=== PATIENT | female | born 1940 | race Caucasian/White ===

== ENCOUNTER 2021-01-28 22:41 | Observation (INO) | payer MEDICARE, OTHER ==
--- NOTE | 2021-01-28 22:52 | EDM.PDOC ---
ED HPI GENERAL MEDICAL PROBLEM - General Chief Complaint: Trauma Stated Complaint: FACE LACERATION AND SWOLLEN EYE Time Seen by Provider: 01/28/21 22:45 Source of Information: Reports: Patient, Family History Limitations: Reports: No Limitations - History of Present Illness INITIAL COMMENTS - FREE TEXT/NARRATIVE: Patient is a 80-year-old female who is on warfarin presents today after a fall from standing. She tripped and fell and hit her face on a bucket that was on the ground. She denies any LOC. She suffered laceration to her bridge of her nose and left eyelid. She denies any pain currently states she is able to see clearly. She has no other mental status no pain in her extremities. Upper Face/Facial Pain Score (Numeric/FACES): 5 - Related Data Allergies Allergy/AdvReac Type Severity Reaction Status Date / Time digoxin [From Lanoxin] Allergy Cannot Verified 01/28/21 22:55 Remember hydromorphone HCl Allergy Hallucinati Verified 01/28/21 22:55 [From Dilaudid] ons ibuprofen Allergy Cannot Verified 01/28/21 22:55 Remember levofloxacin Allergy Tachycardia Verified 01/28/21 22:55 naproxen Allergy Rash Verified 01/28/21 22:55 Penicillins Allergy Rash Verified 01/28/21 22:55 propoxyphene HCl Allergy Hallucinati Verified 01/28/21 22:55 [From Darvon] ons quinine Allergy Rash Verified 01/28/21 22:55 Sulfa (Sulfonamide Allergy Cannot Verified 01/28/21 22:55 Antibiotics) Remember sulfasalazine [Sulfasalazine] Allergy Rash Verified 01/28/21 22:55 demerol Allergy Rash Uncoded 01/28/21 22:55 naproxen Allergy Rash Uncoded 01/28/21 22:55 Home Meds: Home Meds Furosemide 20 mg PO DAILY 07/29/14 [History] Metoprolol Tartrate 50 mg PO BID 07/29/14 [History] lisinopriL [Prinivil] 40 mg PO DAILY 07/29/14 [History] metFORMIN HCl [Metformin ER Osmotic] 500 mg PO BIDMEALS 07/29/14 [History] Warfarin [Coumadin] 5 mg PO WE 07/31/14 [History] Warfarin [Coumadin] 10 mg PO SUMOTUTHFRSA 07/31/14 [History] Fluticasone/Salmeterol [Advair 250-50] 1 puff INH BID 08/16/14 [History] Nitroglycerin [Nitrostat] 0.4 mg SL Q5M 12/26/15 [History] Past Medical History HEENT History: Reports: Other (See Below) Other HEENT History: wearing spectacles Cardiovascular History: Reports: Hypertension, Stents, Other (See Below) Other Cardiovascular History: congestive heart Respiratory History: Reports: COPD, Other (See Below) Other Respiratory History: pulmonary embolism Genitourinary History: Reports: None 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: Neurological History: Reports: None Psychiatric History: Reports: None Endocrine/Metabolic History: Reports: Diabetes, Type II Hematologic History: Reports: None Immunologic History: Reports: None Oncologic (Cancer) History: Reports: None Dermatologic History: Reports: None - Infectious Disease History Infectious Disease History: Reports: Chicken Pox, Measles, Mumps, Pertussis (Whooping Cough) - Past Surgical History GI Surgical History: Reports: Hernia, Abdominal ED ROS GENERAL - Review of Systems Review Of Systems: See Below Constitutional: Reports: No Symptoms HEENT: Reports: No Symptoms Respiratory: Reports: No Symptoms Cardiovascular: Reports: No Symptoms Endocrine: Reports: No Symptoms GI/Abdominal: Reports: No Symptoms : Reports: No Symptoms Musculoskeletal: Reports: No Symptoms Skin: Reports: Other (laceration) Neurological: Reports: No Symptoms Psychiatric: Reports: No Symptoms Hematologic/Lymphatic: Reports: No Symptoms Immunologic: Reports: No Symptoms ED EXAM, HEAD INJURY - Physical Exam Exam: See Below Exam Limited By: No Limitations General Appearance: Alert, WD/WN Head: Facial Swelling Nexus Criteria: No: Posterior, Midline Cervical Tenderness, Evidence of Intoxication, Altered Level of Consciousness Eyes: Left Eye: Other (Laceration 2 eyelid), Bilateral Eye: EOMI, PERRL Neck: Non-Tender, Full Range of Motion Respiratory: No Respiratory Distress, Lungs Clear, Normal Breath Sounds Cardiovascular: Normal Peripheral Pulses, Regular Rate, Rhythm GI/Abdominal Exam: Normal Bowel Sounds Neurologic: Alert, Oriented x 3 - [place] Coma Score Best Eye Response (Debi): (4) Open Spontaneously Best Verbal Response (Debi): (5) Oriented Best Motor Response (Debi): (6) Obeys Commands ED LACERATION/WOUND & PEDRO PROC - Laceration/Wound Repair Nare Lac/wound length in cm: 4 Appearance: Superficial Anesthetic Type: Local Local Anesthesia - Lidocaine (Xylocaine): 1% Plain Local Anesthetic Volume: 4cc Skin Prep: Saline Saline irrigation (cc's): 1,000 Exploration/Debridement/Repair: Wound Explored Closed with: Sutures Suture Size: 5-0 # of Sutures: 12 Suture Type: Interrupted, Simple Course - Vital Signs Last Recorded V/S: Last Vital Signs Temp 98.6 F 01/29/21 00:24 Pulse 73 01/29/21 02:00 Resp 18 01/29/21 02:00 BP 186/88 H 01/29/21 02:00 Pulse Ox 96 01/29/21 02:00 - Orders/Labs/Meds Orders: Active Orders 24 hr Category Date Time Status Patient Status [ADT] Routine ADT 01/29/21 02:31 Ordered Vaccines to be Administered [RC] PER UNIT ROUTINE Care 01/28/21 23:31 Active CORONAVIRUS COVID-19 PING [MOLEC] Stat Lab 01/29/21 01:50 Received Labs: Laboratory Tests 01/29/21 01/29/21 01/29/21 Range/Units 01:50 01:50 01:50 WBC 9.00 (4.0-11.0) K/uL RBC 3.86 L (4.30-5.90) M/uL Hgb 13.0 (12.0-16.0) g/dL Hct 37.4 (36.0-46.0) % MCV 96.9 (80.0-98.0) fL MCH 33.7 H (27.0-32.0) pg MCHC 34.8 (31.0-37.0) g/dL RDW Std Deviation 52.6 (28.0-62.0) fl RDW Coeff of John 15 (11.0-15.0) % Plt Count 170 (150-400) K/uL MPV 12.40 H (7.40-12.00) fL Neut % (Auto) 75.5 (48.0-80.0) % Lymph % (Auto) 15.3 L (16.0-40.0) % Orange % (Auto) 8.2 (0.0-15.0) % Eos % (Auto) 0.8 (0.0-7.0) % Baso % (Auto) 0.2 (0.0-1.5) % Neut # (Auto) 6.8 H (1.4-5.7) K/uL Lymph # (Auto) 1.4 (0.6-2.4) K/uL Orange # (Auto) 0.7 (0.0-0.8) K/uL Eos # (Auto) 0.1 (0.0-0.7) K/uL Baso # (Auto) 0.0 (0.0-0.1) K/uL Nucleated RBC % 0.0 /100WBC Nucleated RBCs # 0 K/uL INR 2.39 APTT 36.4 H (18.6-31.3) SEC Sodium 141 (136-145) mmol/L Potassium 3.6 (3.5-5.1) mmol/L Chloride 105 (98-107) mmol/L Carbon Dioxide 26.8 (21.0-32.0) mmol/L BUN 11 (7.0-18.0) mg/dL Creatinine 0.8 (0.6-1.0) mg/dL Est Cr Clr Drug Dosing TNP Estimated GFR (MDRD) > 60.0 ml/min Glucose 123 H (74-106) mg/dL Calcium 9.0 (8.5-10.1) mg/dL Total Bilirubin 0.8 (0.2-1.0) mg/dL AST 21 (15-37) IU/L ALT 18 (14-63) IU/L Alkaline Phosphatase 63 (46-116) U/L Total Protein 6.9 (6.4-8.2) g/dL Albumin 3.9 (3.4-5.0) g/dL Globulin 3.0 (2.6-4.0) g/dL Albumin/Globulin Ratio 1.3 (0.9-1.6) Meds: Medications Discontinued Medications Generic Name Dose Route Start Last Admin Trade Name Freq PRN Reason Stop Dose Admin Hydrocodone Bitart/Acetaminophen 1 tab 01/29/21 01:45 01/29/21 02:08 Acetaminophen/Hydrocodone 325-5 Mg Tab PO 01/29/21 01:46 Not Given ONETIME ONE Diphtheria/Tetanus/Acell Pertussis 0.5 ml 01/28/21 23:31 01/28/21 23:54 Diphtheria,Pertussis(Acell),Tetanus Vaccine 0.5 Ml Syringe IM 01/28/21 23:32 0.5 ml .ONCE ONE Administration Fentanyl 50 mcg 01/29/21 01:50 01/29/21 02:23 Fentanyl 50 Mcg/Ml Sdv IVPUSH 01/29/21 01:51 50 mcg ONETIME ONE Administration Lidocaine HCl 5 ml 01/28/21 23:31 01/28/21 23:53 Lidocaine 1% 5 Ml Sdv INJECT 01/28/21 23:32 5 ml ONETIME ONE Administration - Re-Assessments/Exams Free Text/Narrative Re-Assessment/Exam: 01/29/21 01:[address] Hinds at [place] about patient's findings and he can see her as outpatient this week. He recommend not repairing the laceration to the left eyelid due to the location and not being able to approximated any skin and will heal with secondary intention. We repaired the laceration to the nose. We recommend patient follow-up as outpatient. 01/29/21 02:32 Due to us having to wrap the patient's left eye because we cannot repair laceration patient cannot see on the right eye we will admit for observation. Departure - Departure Time of Disposition: 01:32 Disposition: Refer to Observation Condition: Good Clinical Impression: Orbital floor (blow-out) closed fracture - Discharge Information *PRESCRIPTION DRUG MONITORING PROGRAM REVIEWED*: Not Applicable *COPY OF PRESCRIPTION DRUG MONITORING REPORT IN PATIENT KELSEY: Not Applicable Instructions: Orbital Floor Fracture Referrals: PCP,Not In Area [Primary Care Provider] - Forms: ED Department Discharge Additional Instructions: The following information is given to patients seen in the emergency department who are being discharged to home. This information is to outline your options for follow-up care. We provide all patients seen in our emergency department with a follow-up referral. The need for follow-up, as well as the timing and circumstances, are variable depending upon the specifics of your emergency department visit. If you don't have a primary care physician on staff, we will provide you with a referral. We always advise you to contact your personal physician following an emergency department visit to inform them of the circumstance of the visit and for follow-up with them and/or the need for any referrals to a consulting specialist. The emergency department will also refer you to a specialist when appropriate. This referral assures that you have the opportunity for follow-up care with a specialist. All of these measure are taken in an effort to provide you with optimal care, which includes your follow-up. Under all circumstances we always encourage you to contact your private physician who remains a resource for coordinating your care. When calling for follow-up care, please make the office aware that this follow-up is from your recent emergency room visit. If for any reason you are refused follow-up, please contact the [facility] Emergency Department at and asked to speak to the emergency department charge nurse. Please follow up with your primary care physician. If you do not have a primary care physician, see below: Carson Wilson Md Otolaryngology (Ear, Nose and Throat) [id number] [place] [address] [address] He was seen today after fall at home. You have a orbital floor fracture. We spoke to the ENT doctor at [place] and above is the number to call to obtain an appointment for follow-up. We also repaired your laceration to your nose with sutures and you need to have those taken out in the next 7 to 10 days. You had a laceration to left eyelid that cannot be repaired due to its location that would heal with secondary intention which means it would heal on his own. If you have any other concerning signs or symptoms please return to the ED. Sepsis Event Note (ED) - Focused Exam Vital Signs: Vital Signs Temp Pulse Resp BP Pulse Ox 01/29/21 02:00 73 18 186/88 H 96 01/29/21 01:00 75 18 175/84 H 96 01/29/21 00:24 98.6 F 86 18 176/80 H 96 01/28/21 22:51 98.4 F 88 20 195/103 H 95 - My Orders Last 24 Hours: My Active Orders 01/28/21 23:31 Vaccines to be Administered [RC] PER UNIT ROUTINE 01/29/21 01:50 CORONAVIRUS COVID-19 PING [MOLEC] Stat 01/29/21 02:31 Patient Status [ADT] Routine - Assessment/Plan Last 24 Hours: My Active Orders 01/28/21 23:31 Vaccines to be Administered [RC] PER UNIT ROUTINE 01/29/21 01:50 CORONAVIRUS COVID-19 PING [MOLEC] Stat 01/29/21 02:31 Patient Status [ADT] Routine Plan: Patient is a 80-year-old female presents today after fall from standing on blood thinners. We will obtain imaging of the head and face and also repair laceration of above her nose.
[2021-01-28] MEDS ORDERED: Diphtheria,Pertussis(Acell),Tetanus Vaccine 0.5 ML Syringe IM ONE (23:31)
--- NOTE | 2021-01-28 23:48 | CT ---
INDICATION: Facial injury TECHNIQUE: CT maxillofacial without contrast. COMPARISON: None FINDINGS: Facial bones: There is a blowout fracture of the left orbital floor depressed by 4 mm. No other facial fractures or dislocations. Orbits and globes: Unremarkable. Globes are intact. No sign of intraorbital hemorrhage or emphysema. Sinuses: Traumatic fluid present in the left maxillary sinus. Soft tissues: Left periorbital soft tissue contusion. IMPRESSION: Left orbital floor blow-out fracture depressed by 4 mm with traumatic fluid in the left maxillary sinus. Prominent left periorbital soft tissue contusion. Remainder of the exam is unremarkable. Please note that all CT scans at this facility use dose modulation, iterative reconstruction, and/or weight-based dosing when appropriate to reduce radiation dose to as low as reasonably achievable. Dictated by Flynn Meza MD @ 01/28/2021 11:45:48 PM (Electronically Signed)
--- NOTE | 2021-01-28 23:50 | CT ---
INDICATION: Head and facial injury. TECHNIQUE: CT head without contrast. COMPARISON: None. FINDINGS: CSF spaces: Within normal limits for age. Brain parenchyma and extra-axial spaces: The knowles-white differentiation is normal. No sign of mass, hemorrhage, or midline shift. No extra-axial fluid collection. Skull base and calvarium: The visualized paranasal sinuses and mastoid air cells demonstrate no acute or significant findings. The visualized orbits are grossly unremarkable. No skull fractures. IMPRESSION: Unremarkable noncontrast head CT. There are facial injuries detailed on a separate CT facial report. Please note that all CT scans at this facility use dose modulation, iterative reconstruction, and/or weight-based dosing when appropriate to reduce radiation dose to as low as reasonably achievable. Dictated by Flynn Meza MD @ 01/28/2021 11:48:17 PM (Electronically Signed)
[2021-01-29] MEDS ORDERED: Acetaminophen/HYDROcodone 325-5 MG Tab PO ONE (01:45)
[2021-01-29] MEDS ORDERED: fentaNYL 50 MCG/ML SDV IVPUSH ONE (01:50)
[2021-01-29 02:27] LABS: BLOOD UREA NITROGEN,BUN 11 mg/dL (7.0-18.0); CARBON DIOXIDE,CO2 26.8 mmol/L (21.0-32.0); CHLORIDE,CL 105 mmol/L (98-107); GLUCOSE RANDOM 123 mg/dL (74-106); POTASSIUM,K 3.6 mmol/L (3.5-5.1); SODIUM,NA 141 mmol/L (136-145)
[2021-01-29] MEDS ORDERED: Glucagon,Human Recombinant 1 MG Vial IM PRN (04:55)
[2021-01-29] MEDS ORDERED: 50% Dextrose in Water 50 ML Syringe IVPUSH PRN (04:55)
[2021-01-29] MEDS ORDERED: Sodium Chloride 0.9% 10 ML Syringe FLUSH PRN (04:56)
[2021-01-29] MEDS ORDERED: Sodium Chloride 0.9% 2.5 ML Syringe FLUSH PRN (04:56)
[2021-01-29] MEDS: Acetaminophen/HYDROcodone 325-5 MG Tab PO PRN ×2 (06:17→11:05)
[2021-01-29] MEDS: Lisinopril 10 MG Tab PO SCH ×2 (06:20→09:33)
[2021-01-29] MEDS: Metoprolol Tartrate 50 MG Tab PO SCH ×2 (06:20→09:32)
[2021-01-29] MEDS ORDERED: Insulin Aspart 100 Units/ML 3 ML Pen SUBCUT SCH (07:30)
--- NOTE | 2021-01-29 08:24 | PCM.HP.2 ---
H&P History of Present Illness - General Date of Service: 01/29/21 Admit Problem/Dx: Admission Diagnosis/Problem Admission Diagnosis/Problem Orbital floor (blow-out) closed fracture Source of Information: Patient History Limitations: Reports: No Limitations - History of Present Illness Initial Comments - Free Text/Narative: This 80-year-old female with past medical history of HTN, CHF, history PE on Coumadin, history of diabetes type 2 and CAD presented to the ER with complaints of falling from a standing position. She reports she tripped and fell and hit her face on a bucket that was on the ground. She denies any loss of consciousness. She reports has been feeling well prior to that. She suffered a laceration to the bridge of her nose and left eyelid. She denied any pain when she came in and denied any visual changes to the left eye. No confusion or mental status change. Denies any chest pain shortness of breath palpitations fevers chills abdominal pain, dysuria or black or bloody bowel movements. In the ER, head CT revealed unremarkable noncontrast head CT there facial injuries noted on facial CT. Left orbital floor blowout fracture depressed by 4 mm of traumatic fluid in the left maxillary sinus prominent left periorbital soft tissue contusion was noted. No leukocytosis noted platelets 170,000 INR 2.39. BMP otherwise negative. Covid swab negative. Vital signs reveal heart rate in 70s blood pressure mildly elevated in the 170s to 180s over 80s to 90s. Satting on room air 95%. Patient was treated with fentanyl and Tdap while in the ER. Patient admitted for observation due to the inability to see with left eye wrapped. ER provider contacted ENT Dr. Wilson reports that he can see her outpatient this week. He did not recommend repairing the laceration to the left eyelid but the laceration was repaired to the nasal bridge. Patient's eye needed to be wrapped as they were unable to repair the laceration. We will arrange outpatient follow-up with ENT. Upper Face/Facial Pain Score (Numeric/FACES): 5 - Related Data Allergies/Adverse Reactions: Allergies Allergy/AdvReac Type Severity Reaction Status Date / Time digoxin [From Lanoxin] Allergy Cannot Verified 01/29/21 03:59 Remember hydromorphone HCl Allergy Hallucinati Verified 01/29/21 03:59 [From Dilaudid] ons ibuprofen Allergy Cannot Verified 01/29/21 03:59 Remember levofloxacin Allergy Tachycardia Verified 01/29/21 03:59 naproxen Allergy Rash Verified 01/29/21 03:59 Penicillins Allergy Rash Verified 01/29/21 03:59 propoxyphene HCl Allergy Hallucinati Verified 01/29/21 03:59 [From Darvon] ons quinine Allergy Rash Verified 01/29/21 03:59 Sulfa (Sulfonamide Allergy Cannot Verified 01/29/21 03:59 Antibiotics) Remember sulfasalazine [Sulfasalazine] Allergy Rash Verified 01/29/21 03:59 demerol Allergy Rash Uncoded 01/29/21 03:59 naproxen Allergy Rash Uncoded 01/29/21 03:59 Home Medications: Home Meds Furosemide 20 mg PO DAILY 07/29/14 [History] Metoprolol Tartrate 50 mg PO BID 07/29/14 [History] lisinopriL [Prinivil] 40 mg PO DAILY 07/29/14 [History] metFORMIN HCl [Metformin ER Osmotic] 500 mg PO BIDMEALS 07/29/14 [History] Warfarin [Coumadin] 5 mg PO TU 07/31/14 [History] Warfarin [Coumadin] 10 mg PO SUMOWETHFRSA 07/31/14 [History] Fluticasone/Salmeterol [Advair 250-50] 1 puff INH BID 08/16/14 [History] Nitroglycerin [Nitrostat] 0.4 mg SL Q5M 12/26/15 [History] Hydrocodone/Acetaminophen [HYDROcodone-Acetaminophen 5-325 MG] 1 each PO Q6H PRN #14 tab 01/29/21 [Rx] Past Medical History HEENT History: Reports: Cataract, Impaired Vision Other HEENT History: wearing spectacles Cardiovascular History: Reports: Heart Failure, Hypertension, Stents Other Cardiovascular History: congestive heart Respiratory History: Reports: COPD, Other (See Below) Other Respiratory History: Pulmonary Embolism Genitourinary History: Reports: None [employer] History: Reports: Neurological History: Reports: None Psychiatric History: Reports: None Endocrine/Metabolic History: Reports: Diabetes, Type II Hematologic History: Reports: None Immunologic History: Reports: None Oncologic (Cancer) History: Reports: None Dermatologic History: Reports: Other (See Below) Other Dermatologic History: Shingles - Infectious Disease History Infectious Disease History: Reports: Chicken Pox, Measles, Mumps, Pertussis (Whooping Cough), Shingles - Past Surgical History Head Surgeries/Procedures: Reports: None GI Surgical History: Reports: Hernia, Abdominal Social & Family History - Tobacco Use Tobacco Use Status *Q: Never Tobacco User Second Hand Smoke Exposure: No - Caffeine Use Caffeine Use: Reports: Coffee - Recreational Drug Use Recreational Drug Use: No H&P Review of Systems - Review of Systems: Review Of Systems: See Below General: Denies: Fever, Chills, Malaise HEENT: Reports: No Symptoms. Denies: Sinus Congestion, Visual Changes (no new changes.) Pulmonary: Reports: No Symptoms. Denies: Shortness of Breath Cardiovascular: Reports: No Symptoms. Denies: Chest Pain Gastrointestinal: Reports: No Symptoms. Denies: Abdominal Pain, Black Stool, Nausea, Vomiting Genitourinary: Reports: No Symptoms. Denies: Dysuria, Frequency Skin: Reports: Wound (L eye and nasal bridge) Psychiatric: Reports: No Symptoms Neurological: Reports: No Symptoms Hematologic/Lymphatic: Reports: No Symptoms Immunologic: Reports: No Symptoms Exam - Exam Exam: See Below - Vital Signs Vital Signs: Last Vital Signs Temp 98.7 F 01/29/21 03:48 Pulse 81 01/29/21 06:20 Resp 16 01/29/21 03:48 BP 177/89 H 01/29/21 06:20 Pulse Ox 95 01/29/21 03:48 Weight: 84.504 kg - Exam General: Alert, Oriented, Cooperative HEENT: Conjunctiva Clear, Posterior Pharynx Clear, Pupils Reactive, Other (Laceration to L eye lid, no repair, left to heal by secondary intention due to location. No active bleeding noted. Nasal bridge sutures in takes, with trace oozing noted. Facial bruising L greater than R. ) Lungs: Clear to Auscultation, Normal Respiratory Effort Cardiovascular: Regular Rate, Regular Rhythm GI/Abdominal Exam: Normal Bowel Sounds, Soft, Non-Tender, No Distention Extremities: Normal Inspection, Normal Range of Motion, Non-Tender, No Pedal Edema Skin: Warm, Wound (as described above.) Neuro Extensive - Mental Status: Alert, Oriented x3 Neuro Extensive - Motor, Sensory, Reflexes: CN II-XII Intact, Other (no new vison concerns. Able to see clearly from L. R eye blurred from cataract which is baseline. ) - Patient Data Lab Results Last 24 hrs: Laboratory Results - last 24 hr 01/29/21 01/29/21 01/29/21 Range/Units 01:50 01:50 01:50 WBC 9.00 (4.0-11.0) K/uL RBC 3.86 L (4.30-5.90) M/uL Hgb 13.0 (12.0-16.0) g/dL Hct 37.4 (36.0-46.0) % MCV 96.9 (80.0-98.0) fL MCH 33.7 H (27.0-32.0) pg MCHC 34.8 (31.0-37.0) g/dL RDW Std Deviation 52.6 (28.0-62.0) fl RDW Coeff of John 15 (11.0-15.0) % Plt Count 170 (150-400) K/uL MPV 12.40 H (7.40-12.00) fL Neut % (Auto) 75.5 (48.0-80.0) % Lymph % (Auto) 15.3 L (16.0-40.0) % [place] % (Auto) 8.2 (0.0-15.0) % Eos % (Auto) 0.8 (0.0-7.0) % Baso % (Auto) 0.2 (0.0-1.5) % Neut # (Auto) 6.8 H (1.4-5.7) K/uL Lymph # (Auto) 1.4 (0.6-2.4) K/uL [place] # (Auto) 0.7 (0.0-0.8) K/uL Eos # (Auto) 0.1 (0.0-0.7) K/uL Baso # (Auto) 0.0 (0.0-0.1) K/uL Nucleated RBC % 0.0 /100WBC Nucleated RBCs # 0 K/uL INR 2.39 APTT 36.4 H (18.6-31.3) SEC Sodium 141 (136-145) mmol/L Potassium 3.6 (3.5-5.1) mmol/L Chloride 105 (98-107) mmol/L Carbon Dioxide 26.8 (21.0-32.0) mmol/L BUN 11 (7.0-18.0) mg/dL Creatinine 0.8 (0.6-1.0) mg/dL Est Cr Clr Drug Dosing TNP Estimated GFR (MDRD) > 60.0 ml/min Glucose 123 H (74-106) mg/dL POC Glucose (70-99) mg/dL Calcium 9.0 (8.5-10.1) mg/dL Total Bilirubin 0.8 (0.2-1.0) mg/dL AST 21 (15-37) IU/L ALT 18 (14-63) IU/L Alkaline Phosphatase 63 (46-116) U/L Total Protein 6.9 (6.4-8.2) g/dL Albumin 3.9 (3.4-5.0) g/dL Globulin 3.0 (2.6-4.0) g/dL Albumin/Globulin Ratio 1.3 (0.9-1.6) SARS-CoV-2 RNA (PING) (NEGATIVE) 01/29/21 01/29/21 Range/Units 01:50 07:00 WBC (4.0-11.0) K/uL RBC (4.30-5.90) M/uL Hgb (12.0-16.0) g/dL Hct (36.0-46.0) % MCV (80.0-98.0) fL MCH (27.0-32.0) pg MCHC (31.0-37.0) g/dL RDW Std Deviation (28.0-62.0) fl RDW Coeff of John (11.0-15.0) % Plt Count (150-400) K/uL MPV (7.40-12.00) fL Neut % (Auto) (48.0-80.0) % Lymph % (Auto) (16.0-40.0) % [place] % (Auto) (0.0-15.0) % Eos % (Auto) (0.0-7.0) % Baso % (Auto) (0.0-1.5) % Neut # (Auto) (1.4-5.7) K/uL Lymph # (Auto) (0.6-2.4) K/uL [place] # (Auto) (0.0-0.8) K/uL Eos # (Auto) (0.0-0.7) K/uL Baso # (Auto) (0.0-0.1) K/uL Nucleated RBC % /100WBC Nucleated RBCs # K/uL INR APTT (18.6-31.3) SEC Sodium (136-145) mmol/L Potassium (3.5-5.1) mmol/L Chloride (98-107) mmol/L Carbon Dioxide (21.0-32.0) mmol/L BUN (7.0-18.0) mg/dL Creatinine (0.6-1.0) mg/dL Est Cr Clr Drug Dosing Estimated GFR (MDRD) ml/min Glucose (74-106) mg/dL POC Glucose 109 H (70-99) mg/dL Calcium (8.5-10.1) mg/dL Total Bilirubin (0.2-1.0) mg/dL AST (15-37) IU/L ALT (14-63) IU/L Alkaline Phosphatase (46-116) U/L Total Protein (6.4-8.2) g/dL Albumin (3.4-5.0) g/dL Globulin (2.6-4.0) g/dL Albumin/Globulin Ratio (0.9-1.6) SARS-CoV-2 RNA (PING) NEGATIVE (NEGATIVE) Result Diagrams: 01/29/21 01:50 01/29/21 01:50 Sepsis Event Note - Evaluation Sepsis Screening Result: No Definite Risk - Focused Exam Vital Signs: Vital Signs Temp Pulse Pulse Resp BP BP Pulse Ox 01/29/21 06:20 81 177/89 H 01/29/21 03:48 98.7 F 73 16 170/83 H 95 01/29/21 03:09 98.2 F 75 18 188/98 H 95 01/29/21 02:00 73 18 186/88 H 96 01/29/21 01:00 75 18 175/84 H 96 01/29/21 00:24 98.6 F 86 18 176/80 H 96 01/28/21 22:51 98.4 F 88 20 195/103 H 95 - Problem List (1) Orbital floor (blow-out) closed fracture SNOMED Code(s): 04641015 ICD Code: S02.30XA - FRACTURE OF ORBITAL FLOOR, UNSPECIFIED SIDE, INIT Status: Acute Current Visit: Yes (2) Laceration of face SNOMED Code(s): 182377911 ICD Code: S01.81XA - LACERATION W/O FOREIGN BODY OF OTH PART OF HEAD, INIT ENCNTR Status: Acute Current Visit: Yes (3) Fall from standing SNOMED Code(s): 1477935 ICD Code: W19.XXXA - UNSPECIFIED FALL, INITIAL ENCOUNTER Status: Acute Current Visit: Yes (4) CHF (congestive heart failure) SNOMED Code(s): 48935381 ICD Code: I50.9 - HEART FAILURE, UNSPECIFIED Status: Chronic Current Visit: Yes Qualifiers: Heart failure type: unspecified Heart failure chronicity: chronic Qualified Code(s): I50.9 - Heart failure, unspecified (5) COPD (chronic obstructive pulmonary disease) SNOMED Code(s): 57041116 ICD Code: J44.9 - CHRONIC OBSTRUCTIVE PULMONARY DISEASE, UNSPECIFIED Status: Chronic Current Visit: Yes (6) HTN (hypertension) SNOMED Code(s): 84494992 ICD Code: I10 - ESSENTIAL (PRIMARY) HYPERTENSION Status: Chronic Current Visit: Yes (7) CAD (coronary artery disease) SNOMED Code(s): 39533918 ICD Code: I25.10 - ATHSCL HEART DISEASE OF [place] CORONARY ARTERY W/O ANG PCTRS Status: Chronic Current Visit: Yes (8) Diabetes type 2, controlled SNOMED Code(s): 79626027, 983731703 ICD Code: E11.9 - TYPE 2 DIABETES MELLITUS WITHOUT COMPLICATIONS Status: Chronic Current Visit: Yes (9) Anticoagulation goal of INR 2 to 3 SNOMED Code(s): 27066274 ICD Code: Z51.81 - ENCOUNTER FOR THERAPEUTIC DRUG LEVEL MONITORING; Z79.01 - IRRIGATION SYSTEM OPERATOR (CURRENT) USE OF ANTICOAGULANTS Status: Chronic Current Visit: Yes (10) Hx pulmonary embolism SNOMED Code(s): 979553582 ICD Code: Z86.711 - PERSONAL HISTORY OF PULMONARY EMBOLISM Status: Chronic Current Visit: Yes (11) Hx of deep venous thrombosis SNOMED Code(s): 756416885 ICD Code: Z86.718 - PERSONAL HISTORY OF OTHER VENOUS THROMBOSIS AND EMBOLISM Status: Chronic Current Visit: Yes Problem List Initiated/Reviewed/Updated: Yes Orders Last 24hrs: Active Orders 24 hr Category Date Time Status Patient Status [ADT] Routine ADT 01/29/21 02:31 Active Blood Glucose Check, Bedside [RC] TIDAC Care 01/29/21 06:00 Active RT Post Treatment Assessment [RC] Click to Edit Care 01/29/21 04:57 Active RT Pre-Treatment Assessment [RC] Click to Edit Care 01/29/21 04:57 Active Telemetry Monitoring [Cardiac Monitoring] [RC] . Care 01/29/21 04:56 Active DIRECTED Vaccines to be Administered [RC] PER UNIT ROUTINE Care 01/28/21 23:31 Active [employer] Diet [DIET] Diet 01/29/21 Breakfast Active Acetaminophen/HYDROcodone [[place] 325-5 MG] Med 01/29/21 04:55 Active 1 tab PO Q4H PRN Dextrose 50% in Water Med 01/29/21 04:55 Active 50 ml IVPUSH ASDIRECTED PRN Fluticasone/Salmeterol [Advair Diskus 250-50] Med 01/29/21 09:00 Active 0 puff INH BID Furosemide [Lasix] Med 01/29/21 09:00 Active 20 mg PO DAILY Glucagon,Human Recombinant [GlucaGen] Med 01/29/21 04:55 Active 1 mg IM ASDIRECTED PRN Insulin Aspart [NovoLOG] Med 01/29/21 07:30 Active See Protocol SUBCUT TIDAC Metoprolol Tartrate [Lopressor] Med 01/29/21 05:00 Active 50 mg PO BID Sodium Chloride 0.9% [Saline Flush] Med 01/29/21 04:56 Active 10 ml FLUSH ASDIRECTED PRN Sodium Chloride 0.9% [Saline Flush] Med 01/29/21 04:56 Active 2.5 ml FLUSH ASDIRECTED PRN lisinopriL [Prinivil] Med 01/29/21 05:00 Active 40 mg PO DAILY Saline Lock Insert [OM.PC] Routine Oth 01/29/21 04:56 Ordered Medication Orders Hydrocodone Bitart/Acetaminophen (Acetaminophen/Hydrocodone 325-5 Mg Tab) 1 tab PO Q4H PRN PRN Reason: Pain Last Admin: 01/29/21 06:17 Dose: 1 tab Documented by: VANDANA Dextrose/Water (50% Dextrose In Water 50 Ml Syringe) 50 ml IVPUSH ASDIRECTED PRN PRN Reason: Hypoglycemia Furosemide (Furosemide 20 Mg Tab) 20 mg PO DAILY [facility] Glucagon (Glucagon,Human Recombinant 1 Mg Vial) 1 mg IM ASDIRECTED PRN PRN Reason: Hypoglycemia Insulin Aspart (Insulin Aspart 100 Units/Ml 3 Ml Pen) 0 unit SUBCUT TIDAC [facility]; Protocol Last Admin: 01/29/21 07:51 Dose: Not Given Documented by: ROBERTA Lisinopril (Lisinopril 10 Mg Tab) 40 mg PO DAILY [facility] Last Admin: 01/29/21 06:20 Dose: 40 mg Documented by: VANDANA Metoprolol Tartrate (Metoprolol Tartrate 50 Mg Tab) 50 mg PO BID [facility] Last Admin: 01/29/21 06:20 Dose: 50 mg Documented by: VANDANA Fluticasone/Salmeterol (Fluticasone/Salmeterol 250-50 Mcg Inhalation Powder 14/Diskus) 0 puff INH BID [facility] Sodium Chloride (Sodium Chloride 0.9% 10 Ml Syringe) 10 ml FLUSH ASDIRECTED PRN PRN Reason: Keep Vein Open Sodium Chloride (Sodium Chloride 0.9% 2.5 Ml Syringe) 2.5 ml FLUSH ASDIRECTED PRN PRN Reason: Keep Vein Open Assessment/Plan Comment:: This 80-year-old female admitted with left orbital blowout fracture, fall from standing and facial laceration 1. Left orbital blowout fracture/facial laceration -Needs follow-up appointment with Dr. Wilson, ENT [place] who was contacted via ER last evening - 2. Fall -Mechanical -Consult PT for safety at home 3. History of hypertension, CAD, CHF -Resume home medications 4. COPD -Resume inhalers 5. History PE -HOLD warfarin today -Monitor for signs of increased bleeding 6. DM type II -ADA diet -NovoLog sliding scale VTE prophylaxis: Coumadin Discharge PLAN: Facial dressings removed today wounds assessed. Appear to be healing well with no significant amount of bleeding. Facial bruising noted. Laceration to left eyelid remains open with no significant bleeding or oozing. Nasal bridge sutures intact with trace oozing. Dressing reapplied after cleansing eyes. Keeping the eye open so she is able to see as much as possible. Nursing spoke with son who is willing to pick her up today and take her to [place]. Appointment with Dr. Wilson arranged today at 3 PM. Patient to hold Coumadin today. Will send [place] 14 tabs 1 tab every 6 hours as needed for pain. Resume all other home medications. Follow-up with PCP in 1 week to have sutures removed. Dressing change supplies given change daily or if dressing directions given by provider in [place]. Patient to be discharged home today, return to the ER or clinic if concerns should arise sooner.
[2021-01-29] MEDS ORDERED: Ondansetron 4 MG/2 ML SDV IVPUSH PRN (08:26)
[2021-01-29] MEDS ORDERED: Acetaminophen 325 MG Tab PO PRN (08:26)
[2021-01-29] MEDS ORDERED: Fluticasone/Salmeterol 250-50 MCG Inhalation Powder 14/Diskus INH SCH (09:00)
[2021-01-29] MEDS ORDERED: Furosemide 20 MG Tab PO SCH (09:00)
[2021-01-29 12:32] VITALS: BP 147/65; PULSE 63
== END 2021-01-29 11:20 | disposition home or self-care (01) ==
LOC: MW.ED 22:41 → MW.MS 01-29 02:31
PROVIDERS: ADMIT Internal Medicine; ATTEND Internal Medicine
DX: S02.32XA Fracture of orbital floor, left side, initial encounter for closed fracture (principal); S01.81XA Laceration without foreign body of other part of head, initial encounter; I11.0 Hypertensive heart disease with heart failure; I50.9 Heart failure, unspecified; J44.9 Chronic obstructive pulmonary disease, unspecified; I25.10 Atherosclerotic heart disease of native coronary artery without angina pectoris; E11.9 Type 2 diabetes mellitus without complications; Z20.822 Contact with and (suspected) exposure to COVID-19; Z23 Encounter for immunization; Z51.81 Encounter for therapeutic drug level monitoring; Z86.711 Personal history of pulmonary embolism; Z86.718 Personal history of other venous thrombosis and embolism; Z88.0 Allergy status to penicillin; Z88.1 Allergy status to other antibiotic agents; Z88.2 Allergy status to sulfonamides; Z88.8 Allergy status to other drugs, medicaments and biological substances; Z79.01 Long term (current) use of anticoagulants; Z79.899 Other long term (current) drug therapy; W19.XXXA Unspecified fall, initial encounter
CPT/HCPCS: 12013; 36415; 70450; 70486; 80053; 82947; 85025; 85610; 85730; 90471; 90715; 96374; 97161; 99284; A9270; J3010; U0002; G0378